=== PATIENT | male | born 1945 | race Caucasian/White ===

== ENCOUNTER 2018-12-30 15:46 | Emergency (ER) | payer MEDICARE, OTHER ==
--- NOTE | 2018-12-30 18:29 | EDM.PDOC ---
ED HPI GENERAL MEDICAL PROBLEM - General Chief Complaint: Abdominal Pain Stated Complaint: ABDOMINAL PAIN Time Seen by Provider: 12/30/18 18:07 Source of Information: Reports: Patient History Limitations: Reports: No Limitations - History of Present Illness INITIAL COMMENTS - FREE TEXT/NARRATIVE: Mr. Crockett is a pleasant 73-year-old man who states that he has had recurrent sharp right and left lower quadrant pain since before 2011, when he suffered a perforated appendicitis. The patient states that he believes his pain is related to intestinal adhesions. He states that he often gets relief with flatulence after taking simethicone. He states that his current episode of pain began around 07:00 this morning, but got worse around 15:00. It is hard for him to localize the pain, but he indicates his lower abdomen. He states that it waxes and wanes. He states that he feels better if he loosens his pants. He states that he has taken simethicone 4 times today, and has had flatulence. He states that his pain has now improved. The patient denies recent fever, nausea, vomiting, constipation, diarrhea, or urinary symptoms. The patient states that a prior abdominal MRI in 2011, as well as CT scans, have all been negative. The patient's PCP is in [place], [place]. Lower Abdominal Pain Score (Numeric/FACES): 7 - Related Data Allergies Allergy/AdvReac Type Severity Reaction Status Date / Time iodine Allergy Other Verified 12/30/18 16:00 Penicillins Allergy Rash Verified 12/30/18 16:00 Home Meds: Home Meds Aspirin 81 mg PO DAILY 12/30/18 [History] Cyanocobalamin (Vitamin B12) [Vitamin B12] 2,000 mcg PO DAILY 12/30/18 [History] Ergocalciferol (Vitamin D2) [Vitamin D2] 2,000 unit PO DAILY 12/30/18 [History] Finasteride [Proscar] 5 mg PO DAILY 12/30/18 [History] Midodrine 2.5 mg PO DAILY 12/30/18 [History] Pindolol 5 mg PO DAILY 12/30/18 [History] Psyllium [Metamucil] 1 gm PO DAILY 12/30/18 [History] Riboflavin [Vitamin B-2] 200 mg PO BID 12/30/18 [History] Sertraline [Zoloft] 50 mg PO DAILY 12/30/18 [History] Turmeric [Curcumin] 450 mg PO DAILY 12/30/18 [History] Past Medical History Cardiovascular History: Reports: Arrhythmia (dysautonomic bradycardia) Respiratory History: Reports: Asthma (suspected, not tested) Genitourinary History: Reports: BPH Musculoskeletal History: Reports: Arthritis Neurological History: Reports: Migraines Psychiatric History: Reports: Depression - Past Surgical History Cardiovascular Surgical History: Reports: Pacer GI Surgical History: Reports: Appendectomy Musculoskeletal Surgical History: Reports: Arthroscopic Knee (left) Social & Family History - Tobacco Use Smoking Status *Q: Never Smoker - Alcohol Use Alcohol Use History: Yes Alcohol Use Frequency: Socially - Recreational Drug Use Recreational Drug Use: No - Living Situation & Occupation Living situation: Reports: with Spouse Occupation: Retired ED ROS GENERAL - Review of Systems Review Of Systems: ROS reveals no pertinent complaints other than HPI. ED EXAM, GI/ABD - Physical Exam Exam: See Below Exam Limited By: No Limitations General Appearance: Alert, WD/WN, No Apparent Distress Eyes: Bilateral: Normal Appearance, EOMI Ears: Normal External Exam, Hearing Grossly Normal Nose: Normal Inspection Throat/Mouth: Normal Inspection, Normal Lips, Normal Voice, No Airway Compromise Head: Atraumatic, Normocephalic Neck: Normal Inspection, Full Range of Motion Respiratory/Chest: No Respiratory Distress, Lungs Clear, Normal Breath Sounds, No Accessory Muscle Use Cardiovascular: Normal Peripheral Pulses, Regular Rate, Rhythm, No Edema, No Gallop, No JVD, No Murmur, No Rub GI/Abdominal Exam: Normal Bowel Sounds, Soft, No Organomegaly, No Distention, No Abnormal Bruit, No Mass, Tender (Mild, lower abdomen only. Nontender elsewhere.) (Male) Exam: Deferred Rectal (Males) Exam: Deferred Back Exam: Normal Inspection, Full Range of Motion, NT Extremities: Normal Inspection, Normal Range of Motion, No Pedal Edema, Normal Capillary Refill Neurological: Alert, Oriented, Normal Cognition, No Motor/Sensory Deficits Psychiatric: Normal Affect Skin Exam: Warm, Dry, Intact, Normal Color, No Rash Course - Vital Signs Last Recorded V/S: Last Vital Signs Temp 36.6 C 12/30/18 15:57 Pulse 63 12/30/18 15:57 Resp 15 12/30/18 15:57 BP 140/73 12/30/18 15:57 Pulse Ox 99 09/17/19 15:57 - Orders/Labs/Meds Labs: Laboratory Tests 12/30/18 12/30/18 12/30/18 Range/Units 16:08 16:10 16:24 WBC 4.86 (4.23-9.07) K/mm3 RBC 4.91 (4.63-6.08) M/mm3 Hgb 14.2 (13.7-17.5) gm/dl Hct 41.4 (40.1-51.0) % MCV 84.3 (79.0-92.2) fl MCH 28.9 (25.7-32.2) pg MCHC 34.3 (32.2-35.5) g/dl RDW Std Deviation 41.1 (35.1-43.9) fL Plt Count 285 (163-337) K/mm3 MPV 8.9 L (9.4-12.3) fl Neut % (Auto) 53.1 (34.0-67.9) % Lymph % (Auto) 31.5 (21.8-53.1) % [place]ahan % (Auto) 10.3 (5.3-12.2) % Eos % (Auto) 4.3 (0.8-7.0) Baso % (Auto) 0.6 (0.1-1.2) % Neut # (Auto) 2.58 (1.78-5.38) K/mm3 Lymph # (Auto) 1.53 (1.32-3.57) K/mm3 Callahan # (Auto) 0.50 (0.30-0.82) K/mm3 Eos # (Auto) 0.21 (0.04-0.54) K/mm3 Baso # (Auto) 0.03 (0.01-0.08) K/mm3 Sodium 140 (136-145) mEq/L Potassium 4.0 (3.5-5.1) mEq/L Chloride 107 (98-107) mEq/L Carbon Dioxide 27 (21-32) mEq/L Anion Gap 10.0 (5-15) BUN 16 (7-18) mg/dL Creatinine 1.2 (0.7-1.3) mg/dL Est Cr Clr Drug Dosing 61.07 mL/min Estimated GFR (MDRD) 60 (>60) mL/min BUN/Creatinine Ratio 13.3 L (14-18) Glucose 99 (83-115) mg/dL Calcium 9.2 (8.5-10.1) mg/dL Total Bilirubin 0.6 (0.2-1.0) mg/dL AST 26 (15-37) U/L ALT 29 (16-63) U/L Alkaline Phosphatase 102 (46-116) U/L Total Protein 6.8 (6.4-8.2) g/dl Albumin 3.9 (3.4-5.0) g/dl Globulin 2.9 gm/dL Albumin/Globulin Ratio 1.3 (1-2) Amylase 42 (20-160) U/L Lipase 166 (73-393) U/L Urine Color Yellow (Yellow) Urine Appearance Slt cloudy H (Clear) Urine pH 6.5 (5.0-8.0) Ur Specific [place] 1.025 (1.005-1.030) Urine Protein Negative (Negative) Urine Glucose (UA) Negative (Negative) Urine Ketones Negative (Negative) Urine Occult Blood Negative (Negative) Urine Nitrite Negative (Negative) Urine Bilirubin Negative (Negative) Urine Urobilinogen 0.2 (0.2-1.0) Ur Leukocyte Esterase Negative (Negative) Urine RBC 0-5 (0-5) /hpf Urine WBC 0-5 (0-5) /hpf Ur Squamous Epith Cells Not seen (0-5) /hpf Urine Bacteria Few (FEW) /hpf Urine Mucus Moderate H (FEW) /hpf - Re-Assessments/Exams Free Text/Narrative Re-Assessment/Exam: 12/30/18 18:29 Upright abdominal x-rays appear to demonstrate a significant amount of stool in the left side of the colon, and a small amount on the right, with a fair amount of gas in the transverse colon. No air-fluid levels to suggest a small bowel obstruction. No free air. Formal read per the Radiologist pending. 12/30/18 18:35 Test results discussed with the patient. A normal WBC count and no electrolyte abnormalities is reassuring that no significant abnormality is occurring. I suspect that the patient's abdominal discomfort is due to constipation of the left colon. I'm recommending that he try mineral oil or saline enemas, then increase the amount of water that he takes with his Metamucil, in order to try to prevent constipation in the future. Departure - Departure Time of Disposition: 18:38 Disposition: Home, Self-Care 01 Condition: Good Clinical Impression: Constipation - Discharge Information *PRESCRIPTION DRUG MONITORING PROGRAM REVIEWED*: Not Applicable *COPY OF PRESCRIPTION DRUG MONITORING REPORT IN PATIENT GRANT: Not Applicable Instructions: Abdominal Pain, Adult, [id number] Referrals: PCP,Not In Area [Primary Care Provider] - Forms: ED Department Discharge Additional Instructions: You were seen in the emergency room for recurrent lower abdominal pain. Workup in the ER included blood work, a urinalysis, and upright abdominal x- rays. Your blood work and urinalysis were completely normal, however, your abdominal x -rays found a significant amount of constipation in the left colon, which is likely the cause of your symptoms, at least this time. We recommend that you try either saline or mineral oil enemas to get some immediate relief. You may also try [id number] milk of magnesia or magnesium citrate, along with the enemas, to try to get relief. Going forward, we recommend that you increase the amount of water that you take with your psyllium, to try to prevent constipation. If any other problems, please do not hesitate to return to the ER.
--- NOTE | 2018-12-31 07:50 | CR ---
Abdomen: Supine and upright views of the abdomen were obtained. Scattered gas within colon and small bowel is seen. This does not appear to be obstructive and is felt to be within normal limits. No abnormal calcifications or soft tissue abnormality is seen. Bony structures appear within normal limits. Impression: 1. Nonspecific supine abdominal x-ray as noted above. Diagnostic code #1
== END 2018-12-30 18:45 | disposition home or self-care (01) ==
LOC: JD.ED 15:46
DX: K59.00 Constipation, unspecified (principal); F32.9 Major depressive disorder, single episode, unspecified; Z79.899 Other long term (current) drug therapy; Z90.49 Acquired absence of other specified parts of digestive tract; Z88.0 Allergy status to penicillin; Z88.8 Allergy status to other drugs, medicaments and biological substances; Z79.82 Long term (current) use of aspirin
CPT/HCPCS: 36415; 74019; 74019-26; 80053; 81001; 82150; 83690; 85025; 99282; 99284-25